=== PATIENT | male | born 1955 | race Caucasian/White ===

== ENCOUNTER 2019-12-19 08:37 | Outpatient (CLI) | payer MEDICARE, OTHER, SELFPAY ==
--- NOTE | 2019-12-19 09:00 | CT_ITS ---
WS: [id number] CT CHEST WITH INTRAVENOUS CONTRAST HISTORY: ABNORMAL CHEST CT TECHNIQUE: Contiguous 5 mm axial imaging performed on the thorax. Coronal and sagittal reformats are submitted. All CT scans at [facility] use at least one of these dose optimization techniq ues: automated exposure control; mA and/or kV adjustment per patient size (includes targeted exams wh ere dose is matched to clinical indication); or iterative reconstruction. CONTRAST: Omnipaque 300; 95 mL IV. DLP: 841.2 mGycm COMPARISON: None available. Lungs and central airway: 5 mm nodule, noncalcified RIGHT middle lobe, image 33 of series 3. No addit ional nodules or pneumonia. Pleura: Normal. No pleural effusion. Heart and pericardium: Mild enlargement of the heart chambers. No pericardial effusion. Mediastinum and yaneli: No mediastinum or hilar adenopathy. Vessels: Mild atherosclerosis aorta. Pulmonary artery size is normal. Chest wall and lower neck: 5 mm LEFT thyroid nodule. Upper abdomen: Moderate size hiatal hernia with mild thickening of the distal esophagus. No adrenal m ass. Mild hepatic steatosis. Osseous structures: Mild anterior wedging of T4. No osteoblastic or osteolytic bone disease. CT/CT chest w con* [id number] IMPRESSION: 1. Noncalcified 5 mm nodule RIGHT middle lobe. Follow-up chest CT recommended in 6 months. 2. Mild cardiomegaly. 3. Mild hepatic steatosis. 4. Moderate size hiatal hernia with mild distal esophageal wall thickening may be due to esophagitis.
[2019-12-19 09:24] LABS: Blood Urea Nitrogen 22 mg/dL (8-23); Glomerular Filtration Rate 67.2 mL/min (90-130)
[2019-12-19] MEDS: iohexol 300 mg/mL 100 mL Btl IV (09:30)
== END 2019-12-19 08:38 | disposition home or self-care (01) ==
LOC: RADWPI 08:40
PROVIDERS: Family Provider Nurse Practitioner Family; PCP Nurse Practitioner Family; Visit Provider Nurse Practitioner Family
DX: R93.89 Abnormal findings on diagnostic imaging of other specified body structures (principal); R91.1 Solitary pulmonary nodule; I51.7 Cardiomegaly; K76.0 Fatty (change of) liver, not elsewhere classified; K44.9 Diaphragmatic hernia without obstruction or gangrene
CPT/HCPCS: 71260; 82565; 84520; Q9967

== ENCOUNTER → 2021-03-04 11:32 | Outpatient (BNVA) | payer MEDICARE, OTHER, SELFPAY | PROVIDERS: Family Provider Nurse Practitioner Family; PCP Nurse Practitioner Family; Visit Provider Registered Nurse | DX: H61.91 Disorder of right external ear, unspecified (principal) | CPT/HCPCS: 88304 ==

== ENCOUNTER 2022-09-30 18:13 | Emergency (ER) | payer MEDICARE, OTHER, SELFPAY ==
[2022-09-30 18:38] VITALS: BP 139/78; PULSE 94; RESP 16; TEMP 36.9; O2SAT 96
[2022-09-30 21:42] VITALS: BP 161/85; PULSE 93; RESP 16; O2SAT 96
--- NOTE | 2022-09-30 21:43 | ED_ITS ---
HPI - General Adult General: Chief complaint: Airway/Esophagus Foreign Body Stated complaint: Food stuck in Throat Time Seen by Provider: 09/30/22 21:25 History of Present Illness: Mr. Uriarte is a 67-year-old gentleman presenting to the emergency department due to concern over possible food bolus. He reports feeling like something was stuck at his throat fairly high up after eating at noon. Since that time anytime he tries to eat or drink anything it seems to sit in his esophagus and he subsequently spits it out or vomits it. No blood associated with this. He does have mild discomfort however no significant chest pain. Denies frequent similar episodes in the past. No other specific changes in health, exacerbating, or alleviating factors identified. Onset (ago): hour(s) Severity: moderate Exacerbating factors: eating Associated symptoms: Reports other Review of Systems General: Reports: 10 or more systems reviewed and unremarkable except in HPI and below PFSH ED PFSH: Medical History (Updated 09/30/22 @ 23:21 by Mariano Hammond MD) Abnormal chest CT Social History Smoking and tobacco status: never smoked Alcohol intake: never Substance/Drug Use: never Adopted: No Caregiver/support person: No service: No Current occupational status: employed and retired Sexually active: Yes Current gender identity: Male Physical Exam Const: COMMON NORMALS: alert GENERAL APPEARANCE: cooperative and well developed HENMT: COMMON NORMALS: normocephalic and atraumatic HEAD & SCALP: normocephalic and atraumatic THROAT: posterior oropharynx normal Eye: COMMON NORMALS: conjunctivae normal CONJUNCTIVA: Yes conjunctivae normal SCLERA: sclerae normal Neck/C-Spine: COMMON NORMALS: supple GENERAL: Yes trachea midline Resp: COMMON NORMALS: clear to auscultation bilaterally EFFORT & INSPECTION: Yes able to speak in complete sentences AUSCULTATION: clear to auscultation bilaterally Cardio: COMMON NORMALS: regular rate RATE: regular rate GI: COMMON NORMALS: Soft to palpation PALPATION: Yes Soft to palpation and No Tenderness to palpation present (GI) Extremity: GENERAL: Yes normal exam except as noted and No edema Neuro: COMMON NORMALS: moves all extremities SENSORIUM/ORIENTATION: Yes alert and No Orientation impaired Psych: COMMON NORMALS: mental status grossly normal and Normal thought process present THOUGHT PROCESS: Normal thought process present Course Vital Signs: Vital signs: Vital Signs Temperature 98.5 F 09/30/22 23:30 Pulse Rate 91 09/30/22 23:30 Respiratory Rate 16 09/30/22 23:30 Blood Pressure 144/86 09/30/22 23:30 Pulse Oximetry 96 09/30/22 23:30 Oxygen Delivery Me thod Room Air 09/30/22 18:38 MDM - General Adult Medical Decision Making 67-year-old gentleman presenting with suspected food bolus. His airway is patent. X-ray with no lobar consolidation or pneumothorax, no radiolucent/radiopaque foreign body identified. Patient pretreated with antiemetic and subsequently given glucagon. He did experience vomiting but also subsequently had relief. He was serially observed and tolerated p.o. intake without recurrence of symptoms. He denies any pain. Most likely etiology of symptoms is impacted food bolus which has subsequently passed into the stomach. The results of ED evaluation were discussed with the patient including prescriptions and/or symptomatic cares (if applicable) including appropriate and responsible use, followup plan, and return precautions. The patient verbalized understanding and felt safe for discharge. Medical Records I reviewed the patient's medical records. Lab Data I reviewed the patient's lab results. Radiology Impressions Chest X-Ray 09/30/22 21:47 IMPRESSION: No obvious acute consolidation. Suboptimal lung base assessment. Followup including lateral view may be obtained if clinically indicated. Discharge Plan Discharge Patient Disposition: Home Clinical Impression: Food impaction of esophagus Condition: Stable Prescriptions: No Action azithromycin [Zithromax Z-Prabhjot] 250 mg tablet See Rx Instructions PO .COMPLEX Qty: 6 0RF Rx Instructions: For 250 mg dose pack: take 500 mg today (day 1), then 250 mg for 4 days (days 2-5) PO Discharge Orders: Discharge ED (Routine); Ordered 09/30/22 Ordered By: Mariano Hammond Referrals: Chelsie Parada FNP [Primary Care Provider] - Discharge Diet: Advance as tolerated and Clear Liquid Discharge Activity: Increase activity as tolerated Patient Instructions: Food Impaction (ED) Activity Restrictions/Additional Instructions: Thank you for visiting the emergency department. You were seen and evaluated for suspected food stuck in your esophagus. We are pleased that you had improvement with treatment in the emergency department. Please follow all precautions as discussed, please follow-up with your primary care provider. Given history you may consider EGD for further evaluation Return to the emergency department for fevers, chest pain, vomiting blood, recurrent symptoms, or anything else that you are concerned about and feel needs emergency department evaluation. Coding Level of Care Code ED Floatlight Loading Supervisor for Bobo Chau
--- NOTE | 2022-09-30 21:47 | XRR_ITS ---
PROCEDURE INFORMATION: Exam: XR Chest Exam date and time: 09/30/2022 10:23 PM Age: 67 years old Clinical indication: Cough; Additional info: Possible esophageal foreign body TECHNIQUE: Imaging protocol: Radiologic exam of the chest. Views: 1 view. COMPARISON: CT chest w con* [id number] 12/19/2019 9:28 AM FINDINGS: Lungs: The lung bases are suboptimally assessed due to technique however the upper lungs are clear of focal consolidation. Pleural spaces: Unremarkable. No pleural effusion. No pneumothorax. Heart/Mediastinum: Cardiac silhouette appears normal in size. No obvious vascular congestion. Bones/joints: No acute osseous findings. Other findings: Single view was submitted. XR/XR chest 1V portable [id number] IMPRESSION: No obvious acute consolidation. Suboptimal lung base assessment. Followup including lateral view may be obtained if clinically indicated.
[2022-09-30 21:59] VITALS: BP 161/85; PULSE 91; O2SAT 96
[2022-09-30] MEDS: ondansetron 2 mg/ML SDV 2 mL 4 MG IVP (21:59)
[2022-09-30] MEDS: metoclopramide 5 mg/mL SDV 2 mL 10 MG IVP (22:43)
[2022-09-30 22:49] VITALS: BP 158/99; PULSE 92; RESP 16; O2SAT 96
[2022-09-30 23:02] VITALS: BP 158/99; RESP 16; O2SAT 96
[2022-09-30 23:30] VITALS: BP 144/86; PULSE 91; RESP 16; TEMP 36.9; O2SAT 96
== END 2022-09-30 23:31 | disposition home or self-care (01) ==
PROVIDERS: Emergency Provider Emergency Medicine; PCP Nurse Practitioner Family
DX: R09.89 Other specified symptoms and signs involving the circulatory and respiratory systems (principal)
CPT/HCPCS: 71045; 96374; 96375; 99284; J1610; J2405; J2765

== ENCOUNTER → 2023-07-21 09:23 | Outpatient (BNVA) | payer MEDICARE, OTHER, SELFPAY | PROVIDERS: PCP Registered Nurse; Visit Provider Registered Nurse | DX: Z00.00 Encounter for general adult medical examination without abnormal findings (principal); E78.5 Hyperlipidemia, unspecified | CPT/HCPCS: 80053; 80061; 85025 ==

== ENCOUNTER → 2023-08-05 09:05 | Outpatient (BNVA) | payer MEDICARE, OTHER, SELFPAY | PROVIDERS: PCP Registered Nurse; Referring Provider Registered Nurse; Visit Provider Surgery | DX: Z12.11 Encounter for screening for malignant neoplasm of colon (principal); Z80.0 Family history of malignant neoplasm of digestive organs; Z86.010 Personal history of colon polyps | CPT/HCPCS: 99024; 99204 ==

== ENCOUNTER 2023-08-24 10:47 | Day surgery (SDC) | payer MEDICARE, OTHER, SELFPAY ==
[2023-08-24 10:58] VITALS: BP 157/87; PULSE 86; RESP 16; TEMP 36.2; O2SAT 97; BMI 29.0
[2023-08-24] MEDS: sodium chloride 0.9% 1,000 ML 30 ML IV (11:01)
--- NOTE | 2023-08-24 12:03 | P.ANESASSM_ITS ---
Pre-Anesthetic Assessment Height/Weight: Height 1.7 m Weight 83.915 kg Temp Pulse Resp BP Pulse Ox O2 Del Method 97.2 F L 86 16 157/87 97 Room Air 08/24/23 10:58 08/24/23 10:58 08/24/23 10:58 08/24/23 10:58 08/24/23 10:58 08/24/23 10:58 Preop Diagnosis: Screening Operation Date: 08/24/23 11:45 Proposed Procedures p 86039 colon G0105 screen colon H risk Z12.11,Z80.0,Z86.010(Not Applicable) - Chester Ybarra DO s EGD 53363 R13.10(Not Applicable) - Chester Ybarra DO Familial anesthetic complications: None Was Beta Ishan taken within 24 hours: N/A Was Clonidine taken within 24 hours: N/A Last intake: Intake Last Liquid Date 08/24/23 Last Liquid Time 06:00 Last Solid Date 08/23/23 Last Solid Time 06:00 Social No alcohol and No tobacco Exam alert, oriented x 3 and regular rate & rhythm BBS diminished Airway Submandibular: within normal limits Cervical ROM: within normal limits Mallampati: Class III Dentition: partials Comments: Comments: Caps History/ROS No significant history except as noted and No significant complaints Pulmonary None reported CV/HEM Atrial Fibrillation, Arrythmia and Coronary Artery Disease Heart ablation 10 years ago None reported Hepatic None reported GI Hiatal Hernia Metabolic None reported Musc/skel None reported Neuropsych None reported Anesthetic Plan ASA status: 2 Anesthesia: Anesthesia Evaluation, General and MAC Risk of > 500 ml blood loss (7ml/kg in children): No Medications/Allergies Home Medications Medication Instructions Recorded Confirmed Last Taken Type CALCIUM 1,200 mg PO 1XD 06/24/23 08/24/23 08/23/23 History cetirizine 10 mg capsule (Zyrtec) 10 mg PO DAILY PRN sneezing 06/24/23 08/24/23 08/23/23 History glucosamine HCl 1,500 mg tablet 1,500 mg PO DAILY 06/24/23 08/24/23 08/23/23 H istory melatonin 10 mg capsule 10 mg PO DAILY 06/24/23 08/24/23 08/23/23 History multivitamin with minerals-folic 1 tab PO DAILY 06/24/23 08/24/23 08/23/23 History acid 400 mcg-lycopene 370 mcg tablet (One-A-Day Men's 50 Plus) ropinirole 0.5 mg tablet 0.5 mg PO .QHS 08/22/23 08/24/23 08/23/23 History Allergies Allergy/AdvReac Type Severity Reaction Status Date / Time shellfish derived Allergy swelling Verified 08/12/23 14:23 Current Medications Generic Name Dose Route Start Last Admin Trade Name Freq PRN Reason Stop Dose Admin Sodium Chloride 1,000 mls @ 30 mls/hr 08/24/23 06:30 08/24/23 11:01 Sodium Chloride 0.9% IV 08/25/23 06:29 30 mls/hr .Q24H TIA Administration PFSH Anesthesia Medical History History of colon polyps Family history of colon cancer Abnormal chest CT Surgical History Hx of tonsillectomy Hx of colonoscopy with polypectomy age 49 and 59 History of radiofrequency ablation (RFA) procedure for cardiac arrhythmia Family History Mother Diabetes Sister Diabetes Social History Smoking and tobacco/nicotine status: never used tobacco/nicotine Alcohol intake: never Substance/Drug Use: never Adopted: No Caregiver/support person: No service: No Current occupational status: employed and retired Sexually active: Yes Do you think of yourself as: Straight/Heterosexual Current gender identity: Male Data Anesthesia Cardiac Studies: No Data to Display
--- NOTE | 2023-08-24 12:18 | W.PM.OPSUD ---
Surgery/Procedure H&P Update DATE OF PROCEDURE: August 24, 2023 DATE H&P PERFORMED: 08/05/23 H&P UPDATE INFORMATION: I have reviewed H&P completed within last 30 days, I have examined patient prior to procedure and Changes to prior documentation as noted here CHANGES TO PREVIOUS DOCUMENTATION: Patient also had a hiatal hernia and distal esophageal wall thickening seen on CT. Will also perform an EGD The risks and benefits of the procedure, including bleeding, infection, intestinal perforation requiring surgery, missed lesion were explained to the patient. The patient is understanding of the risks and wishes to proceed. PREOP DIAGNOSIS: Screening PLANNED PROCEDURE: Operation Date: 08/24/23 11:45 Proposed Procedures p 59843 colon G0105 screen colon H risk Z12.11,Z80.0,Z86.010(Not Applicable) - Chester Ybarra DO s EGD 91107 R13.10(Not Applicable) - Chester Ybarra DO
[2023-08-24 12:47] VITALS: BP 125/83; PULSE 87; RESP 14; O2SAT 92
[2023-08-24 13:00] VITALS: BP 138/76; PULSE 75; RESP 14; O2SAT 93
[2023-08-24 13:21] VITALS: BP 117/77; PULSE 71; RESP 16; O2SAT 95
--- NOTE | 2023-08-24 15:02 | ANE.PACU2 ---
Inpatient post-anesthesia follow up: Vital signs: Temperature 97.2 F Pulse Rate 71 Respiratory Rate 16 Blood Pressure 117/77 Pulse Oximetry 95 Oxygen Delivery Me thod Room Air Oxygen Flow Rate 2 Fraction of Inspir ed Oxygen Hydration adequate: Yes Nausea and vomiting: No Mental status: Baseline Additional Comments: no apparent anesthetic complications noted
== END 2023-08-24 14:01 | disposition home or self-care (01) ==
PROVIDERS: PCP Registered Nurse; Visit Provider Surgery
PROC: 0DJD8ZZ Inspection of Lower Intestinal Tract, Via Natural or Artificial Opening Endoscopic (ICD-10-PCS; CPT 45378; principal; 2023-08-24 11:45)
PROC: 0DJ08ZZ Inspection of Upper Intestinal Tract, Via Natural or Artificial Opening Endoscopic (ICD-10-PCS; CPT 43235; 2023-08-24 11:45)
DX: Z12.11 Encounter for screening for malignant neoplasm of colon (principal); Z80.0 Family history of malignant neoplasm of digestive organs; Z86.010 Personal history of colon polyps; R13.10 Dysphagia, unspecified; K44.9 Diaphragmatic hernia without obstruction or gangrene; K22.2 Esophageal obstruction; K20.90 Esophagitis, unspecified without bleeding; K29.50 Unspecified chronic gastritis without bleeding
CPT/HCPCS: 43239; 43249; 88305; G0121; J2704; J7030

== ENCOUNTER 2023-08-30 07:22 | Outpatient (CLI) | payer MEDICARE, OTHER, SELFPAY ==
--- NOTE | 2023-08-30 08:00 | CT_ITS ---
WS: [id number] CT chest w con* [id number] HISTORY: R91.1 - Solitary pulmonary nodule TECHNIQUE: Axial imaging performed through the thorax. Coronal and sagittal reformats are submitted. All CT scans at [facility] use at least one of these dose optimization techniques: automated exposure control; mA and/or kV adjustment per patient size (includes targeted exams where dose is mat ched to clinical indication); or iterative reconstruction. CONTRAST: Omnipaque 350; 100 mL IV. DLP: 367.24 mGy.cm COMPARISON: 12/19/2019 Lungs and central airway: No pneumonia. Long-term stability of a 5 mm nodule in the RIGHT middle lobe . There is mild hazy attenuation in the lingula and at the LEFT lung base which would probably improv e with better inspiration. No pulmonary mass. No pneumonia. Pleura: Normal. No pleural effusion. Heart and pericardium: Mild cardiomegaly. Mediastinum and yaneli: No mediastinum or hilar adenopathy. Vessels: Mild atherosclerosis aorta. Normal size pulmonary artery. Chest wall and lower neck: Bilateral thyroid nodules. Largest nodule 6 mm LEFT thyroid. Upper abdomen: No adrenal mass. Small hiatal hernia. Osseous structures: No destructive process. IMPRESSION: 1. Long-term stability 5 mm nodule the RIGHT middle lobe. 2. No new pulmonary mass or nodule. 3. Mild cardiomegaly. 4. Subcentimeter bilateral thyroid nodules stable since 12/19/2019.
[2023-08-30] MEDS: iohexol 350 mg/mL 500 mL Btl (per mL) IV (08:02)
== END 2023-08-30 07:23 | disposition home or self-care (01) ==
LOC: RAD 07:22
PROVIDERS: PCP Registered Nurse; Visit Provider Registered Nurse
DX: R91.1 Solitary pulmonary nodule (principal); I51.7 Cardiomegaly; E04.2 Nontoxic multinodular goiter
CPT/HCPCS: 71260; Q9967

== ENCOUNTER → 2023-09-19 08:48 | Outpatient (BNVA) | payer MEDICARE, OTHER, SELFPAY | PROVIDERS: PCP Registered Nurse; Visit Provider Surgery | DX: Z09 Encounter for follow-up examination after completed treatment for conditions other than malignant neoplasm (principal); Z80.0 Family history of malignant neoplasm of digestive organs; Z86.010 Personal history of colon polyps; K22.2 Esophageal obstruction | CPT/HCPCS: 99214 ==

== ENCOUNTER → 2024-10-12 09:09 | Outpatient (BNVA) | payer MEDICARE, OTHER, SELFPAY | PROVIDERS: PCP Registered Nurse; Visit Provider Registered Nurse | DX: G25.81 Restless legs syndrome (principal); B35.3 Tinea pedis; I10 Essential (primary) hypertension | CPT/HCPCS: 80053; 85025 ==

== ENCOUNTER → 2025-05-03 11:28 | Outpatient (BNVA) | payer MEDICARE, OTHER, SELFPAY | PROVIDERS: PCP Registered Nurse; Visit Provider Registered Nurse | DX: Z12.5 Encounter for screening for malignant neoplasm of prostate (principal); Z13.6 Encounter for screening for cardiovascular disorders | CPT/HCPCS: 80053; 80061; 85025; G0103 ==